=== PATIENT | female | born 2000 | race Two or more races ===

== ENCOUNTER 2024-11-05 07:39 | Emergency (ER) | payer OTHER ==
[~2024-11-05] VITALS: Ht 149.9 cm; Wt 72.6 kg
[2024-11-05] MEDS: IV NS 0.9% 500 ML BAG IV ONE (08:15)
[2024-11-05 08:23] LABS: PLATELET COUNT (AUTO) 329 K/uL (150-450); RED BLOOD CELL COUNT(AUTO) 5.14 MIL/uL (4.0-5.2); RED CELL DISTRIBUTION WIDTH 15.0 % (11.5-15.0); WHITE BLOOD COUNT (AUTO) 13.8 K/uL (4.3-11.0)
[2024-11-05 08:29] LABS: CALCIUM, SERUM 9.1 mg/dL (8.5-10.1); CREATININE 0.6 mg/dL (0.6-1.3); SODIUM SERUM 137.0 mmol/L (136-145); UREA NITROGEN, BLOOD 11.0 mg/dL (7-18)
[2024-11-05] MEDS ORDERED: IV NS 0.9% 250 ML IV ONE (08:52)
[2024-11-05] MEDS ORDERED: IOHEXOL-300 100 ML VIAL IV ONE (08:52)
[2024-11-05] MEDS ORDERED: DIAZEPAM 5 MG/ML 2 ML DISP.SYRIN ONE (09:21)
[2024-11-05] MEDS ORDERED: KETOROLAC TROMETHAMINE 15 MG/ML VIAL ONE (09:21)
[2024-11-05] MEDS: KETOROLAC TROMETHAMINE 15 MG/ML VIAL IV ONE (09:32)
[2024-11-05] MEDS: DIAZEPAM 5 MG/ML 2 ML DISP.SYRIN IV ONE (09:34)
[2024-11-05] MEDS ORDERED: NAPR-1164 PO (10:48)
[2024-11-05] MEDS ORDERED: DIAZ2TAB PO (10:48)
[2024-11-05 11:19] VITALS: BP 126/82; TEMP 98.2; O2SAT 100
== END 2024-11-05 11:26 | disposition home or self-care (01) ==
LOC: ER 07:46
DX: G89.29 Other chronic pain (principal); R68.84 Jaw pain
CPT/HCPCS: 99285; 96374; 70491; 96361; 96375; 85025; 80048; 84703; 36415; J1885; J3360; J7050; J7040; Q9967